=== PATIENT | male | born 1950 | race Hispanic/Latino ===

== ENCOUNTER 2017-01-02 06:00 | Day surgery (SDC) | payer OTHER ==
[2017-01-02 06:01] VITALS: BMI 27.2
--- NOTE | 2017-01-02 06:22 | ED PDOC ---
Arrival/HPI - General Chief Complaint: Back Pain Time Seen by Provider: 01/02/17 06:08 - History of Present Illness Narrative History of Present Illness (Text): 01/02/17 06:18 66 yo male, hx of AAA repair, presents with left flank pain x 1 day. pain came on w/o inciting factor. no known trauma. pt states had AAA repair in [facility] [place], with noted ct without any endovascular leak. pt denies any fevers, n/v/d, hematuria, or other complaints. Past Medical History - Provider Review Nursing Documentation Reviewed: Yes - Cardiac Hx Cardiac Disorders: Yes (POST TRIPLE A REPAIR-ENDOVASCULAR REPAIR.) Hx Circulatory Problems: Yes Hx Hypertension: Yes Hx Pacemaker: No - Pulmonary Hx Respiratory Disorders: Yes (SMOKED CIGARETTES H/O QUIT) - Neurological Hx Neurological Disorder: No Hx Paralysis: No - HEENT Hx HEENT Disorder: No - Renal Hx Renal Disorder: No - Endocrine/Metabolic Hx Endocrine Disorders: No - Hematological/Oncological Hx Blood Disorders: No Hx Blood Transfusions: No Hx Blood Transfusion Reaction: No - Integumentary Hx Dermatological Disorder: No - Musculoskeletal/Rheumatological Hx Musculoskeletal Disorders: No Hx Falls: No - Gastrointestinal Hx Gastrointestinal Disorders: Yes (DIVERTICULITIS,APPENDECTOMY) Hx Diverticulitis: Yes - Genitourinary/Gynecological Hx Genitourinary Disorders: No - Psychiatric Hx Psychophysiologic Disorder: No Hx Emotional Abuse: No Hx Physical Abuse: No Hx Substance Use: No - Surgical History Hx Appendectomy: Yes Other/Comment: COLON RESECTION WITH COLOSTOMY AND CLOSURE.,INGUINAL HERNIA REPAIR - Anesthesia Hx Anesthesia Reactions: No - Suicidal Assessment Feels Threatened In Home Enviroment: No Family/Social History - Physician Review Nursing Documentation Reviewed: Yes Family/Social History: Unknown Family HX Smoking Status: Former Smoker Hx Alcohol Use: No Hx Substance Use: No Allergies/Home Meds Allergies/Adverse Reactions: Allergies No Known Allergies Allergy (Verified 01/02/17 06:14) Home Medications: Home Meds Medication Instructions Recorded Confirmed Simvastatin 0 mg PO QPM 01/17/16 01/02/17 Metoprolol Succinate 0 mg PO DAILY 01/19/16 01/28/16 Review of Systems - Review of Systems Constitutional: Normal Eyes: Normal ENT: Normal Respiratory: Normal Cardiovascular: Normal Gastrointestinal: Normal Genitourinary Male: Normal Musculoskeletal: Back Pain Skin: Normal Neurological: Normal Endocrine: Normal Hemo/Lymphatic: Normal Psychiatric: Normal Physical Exam Vital Signs Temp Pulse Resp BP Pulse Ox 01/02/17 09:15 77 147/71 01/02/17 07:40 98.2 F 01/02/17 07:38 75 20 156/89 H 01/02/17 06:34 97.8 F 76 17 158/85 H 96 Temperature: Afebrile Blood Pressure: Normal Pulse: Regular Respiratory Rate: Normal Appearance: Positive for: Well-Appearing, Non-Toxic, Comfortable Pain Distress: None Mental Status: Positive for: Alert and Oriented X 3 - Systems Exam Head: Present: Atraumatic, Normocephalic Pupils: Present: PERRL Extroacular Muscles: Present: EOMI Conjunctiva: Present: Normal Mouth: Present: Moist Mucous Membranes Neck: Present: Normal Range of Motion Respiratory/Chest: Present: Clear to Auscultation, Good Air Exchange. No: Respiratory Distress, Accessory Muscle Use Cardiovascular: Present: Regular Rate and Rhythm, Normal S1, S2. No: Murmurs Abdomen: Present: Normal Bowel Sounds. No: Tenderness, Distention, Peritoneal Signs Back: Present: CVA Tenderness (left) Upper Extremity: Present: Normal Inspection. No: Cyanosis, Edema Lower Extremity: Present: Normal Inspection. No: Edema Neurological: Present: GCS=15, CN II-XII Intact, Speech Normal Skin: Present: Warm, Dry, Normal Color. No: Rashes Psychiatric: Present: Alert, Oriented x 3, Normal Insight, Normal Concentration Medical Decision Making ED Course and Treatment: 01/02/17 06:22 pt to have renal angiogram to be performed by dr chappell. pending callback by dr chappell 01/02/17 06:57 - Lab Interpretations Lab Results: 01/03/17 06:16 01/03/17 06:16 Lab Results 01/03/17 06:16: Sodium 138, Potassium 4.1, Chloride 106, Carbon Dioxide 24, Anion Gap 12, BUN 23 H, Creatinine 1.8 H, Est GFR ( Amer) 46, Est GFR ( Non-Af Amer) 38, Random Glucose 120 H, Calcium 8.7 01/03/17 06:16: WBC 12.0 H, RBC 3.74, Hgb 10.3 L, Hct 31.5 L, MCV 84.2, MCH 27.5 , MCHC 32.7, RDW 14.4, Plt Count 245, MPV 9.8 01/02/17 16:39: Blood Type O POSITIVE, Antibody Screen Negative, Crossmatch See Detail, BBK History Checked Patient has bt 01/02/17 16:39: WBC 12.9 H D, RBC 3.63, Hgb 10.0 L, Hct 30.5 L, MCV 84.0, MCH 27.5, MCHC 32.8, RDW 14.4, Plt Count 279, MPV 9.5, Gran % 70.9 H, Lymph % (Auto ) 20.1 L, Weber % (Auto) 8.0 H, Eos % (Auto) 0.8 L, Baso % (Auto) 0.2, Gran # 9.17 H, Lymph # 2.6, Weber # 1.0 H, Eos # 0.1, Baso # 0.03 01/02/17 07:06: Sodium 140, Potassium 4.7, Chloride 102, Carbon Dioxide 31, Anion Gap 12, BUN 34 H, Creatinine 2.4 H, Est GFR ( Amer) 33, Est GFR ( Non-Af Amer) 27, Random Glucose 98, Calcium 9.5, Total Bilirubin 0.4, AST 22, ALT 22, Alkaline Phosphatase 130 H, Total Protein 7.4, Albumin 4.2, Globulin 3.2 , Albumin/Globulin Ratio 1.3, Lipase 70 01/02/17 07:06: PT 11.1, INR 1.01, APTT 33.2 01/02/17 07:06: WBC 10.0 D, RBC 4.18, Hgb 11.7 L, Hct 35.6 L, MCV 85.2, MCH 28.0, MCHC 32.9, RDW 14.3, Plt Count 251, MPV 9.0, Gran % 71.2 H, Lymph % (Auto ) 21.4 L, Weber % (Auto) 5.4, Eos % (Auto) 1.7, Baso % (Auto) 0.3, Gran # 7.14 H , Lymph # 2.1, Weber # 0.5, Eos # 0.2, Baso # 0.03 - RAD Interpretation Radiology Orders: 01/02/17 07:25 CAR PERIPHERAL VASCULAR ORDER [VASCULAR] Stat - Medication Orders Current Medication Orders: Acetaminophen (Tylenol 325mg Tab) 650 mg PO Q4H PRN PRN Reason: Pain, Mild (1-3) Atorvastatin Calcium (Lipitor) 20 mg PO QPM [facility] Last Admin: 01/02/17 18:16 Dose: 20 mg Sodium Chloride (Sodium Chloride 0.9%) 1,000 mls @ 100 mls/hr IV .Q10H CHARISSE Sodium Chloride (Sodium Chloride 0.45%) 1,000 mls @ 100 mls/hr IV .Q10H CHARISSE Stop: 01/03/17 08:00 Last Admin: 01/03/17 01:23 Dose: 100 mls/hr eMAR Start Stop Document 01/03/17 01:23 FM (Rec: 01/03/17 01:24 [id number]) Intravenous Solution Start Date 01/03/17 Start Time 01:24 End Date 01/03/17 End time 11:24 Total Infusion Time 600 Metoprolol Succinate (Toprol Xl) 50 mg PO DAILY [facility] Ondansetron HCl (Zofran Inj) 4 mg IVP ONCE PRN PRN Reason: Nausea/Vomiting Oxycodone/Acetaminophen (Percocet 5/325 Mg Tab) 1 tab PO Q4H PRN PRN Reason: Pain, moderate (4-7) Stop: 01/05/17 10:04 Last Admin: 01/02/17 15:45 Dose: 1 tab [facility] Pain Assessment Document 01/02/17 15:45 JFR (Rec: 01/02/17 15:45 R [id number]) Pain Reassessment Is this a pain reassessment? No Presence of Pain Presence of Pain Yes Pain Scale Used Pain Scale Used Numeric Location Left, Right or Bilateral Left Pain Location Body Site Arm Description Description Dull Intensity of Pain at present 9 Re-Assess: [facility] Pain Assessment Document 01/02/17 16:45 JFR (Rec: 01/02/17 20:35 R [id number]) Pain Reassessment Is this a pain reassessment? Yes Sleep Is patient sleeping during reassessment? Yes Discontinued Medications Sodium Chloride (Sodium Chloride 0.9%) 350 mls @ 999 mls/hr IV .Q22M STA Stop: 01/02/17 07:47 Last Admin: 01/02/17 07:45 Dose: 999 mls/hr eMAR Start Stop Document 01/02/17 07:45 JARRETT (Rec: 01/02/17 07:45 JARRETT [id number]) Intravenous Solution Start Date 01/02/17 Start Time 07:30 End Date 01/02/17 End time 08:00 Total Infusion Time 30 Disposition/Present on Arrival - Present on Arrival Any Indicators Present on Arrival: No History of DVT/PE: No History of Uncontrolled Diabetes: No Urinary Catheter: No History of Decub. Ulcer: No History Surgical Site Infection Following: None - Disposition Have Diagnosis and Disposition been Completed?: Yes Diagnosis: Flank pain Disposition: HOSPITALIZED Disposition Time: 07:00 Condition: STABLE
[2017-01-02 07:13] LABS: BASO # 0.03 K/mm3 (0.0-2.0); BASO % 0.3 % (0.0-3.0); EOS # 0.2 (0.0-0.7); EOS % 1.7 % (1.5-5.0); GRAN # 7.14 (1.4-6.5); GRAN % 71.2 % (50.0-68.0); HEMATOCRIT 35.6 % (42.0-52.0); LYMPH # 2.1 (1.2-3.4); LYMPH % 21.4 % (22.0-35.0); MEAN CELL VOLUME 85.2 fl (80.0-105.0); MEAN CORPUSCULAR HGB CONC 32.9 g/dl (31.0-37.0); MONO # 0.5 (0.1-0.6); MONO % 5.4 % (1.0-6.0); RED CELL DISTRIBUTION WIDTH 14.3 % (11.5-14.5)
[2017-01-02 07:21] LABS: ALB/GLOB RATIO 1.3 (1.1-1.8); BILIRUBIN,TOTAL 0.4 mg/dL (0.2-1.3); CALCIUM 9.5 mg/dL (8.4-10.5); POTASSIUM 4.7 mmol/L (3.6-5.0); TOTAL PROTEIN 7.4 g/dL (5.8-8.3)
[2017-01-02 07:25] LABS: INR 1.01 (0.93-1.08); PARTIAL THROMBOPLASTIN TIME 33.2 Seconds (25.1-36.5)
[2017-01-02] MEDS ORDERED: Sodium Chloride 0.9% 1,000 ML IV SCH (07:30)
[2017-01-02] MEDS ORDERED: Midazolam 2 MG/2 ML VIAL ONE ×3 (07:32→08:50)
[2017-01-02] MEDS ORDERED: Lidocaine 2% Inj (20ml) ONE (07:32)
[2017-01-02] MEDS ORDERED: Nitroglycerin 50mg in D5W 0 MG/0 ML BOTTLE IV ONE (07:34)
[2017-01-02] MEDS ORDERED: Iodixanol 320 MG/ML 200 ML BOTTLE IV ONE (07:34)
[2017-01-02] MEDS ORDERED: Iodixanol 320 MG/ML 100 ML BOTTLE IV ONE (07:34)
[2017-01-02] MEDS ORDERED: Oxycodone/Acetaminophen 5/325 mg Tab PO PRN (10:03)
[2017-01-02] MEDS: Sodium Chloride 0.45% 1,000 ML IV SCH ×2 (11:35→20:15)
[2017-01-02 12:02] VITALS: RESP 20
[2017-01-02 16:55] LABS: BASO # 0.03 K/mm3 (0.0-2.0); BASO % 0.2 % (0.0-3.0); EOS # 0.1 (0.0-0.7); EOS % 0.8 % (1.5-5.0); GRAN # 9.17 (1.4-6.5); GRAN % 70.9 % (50.0-68.0); HEMATOCRIT 30.5 % (42.0-52.0); LYMPH # 2.6 (1.2-3.4); LYMPH % 20.1 % (22.0-35.0); MEAN CORPUSCULAR HEMOGLOBIN 27.5 pg (25.0-35.0); MEAN CORPUSCULAR HGB CONC 32.8 g/dl (31.0-37.0); MEAN PLATELET VOLUME 9.5 fl (7.0-11.0); RED CELL DISTRIBUTION WIDTH 14.4 % (11.5-14.5); WHITE BLOOD COUNT 12.9 10^3/ul (4.5-11.0)
--- NOTE | 2017-01-02 19:29 | VASCULAR ---
PROCEDURE: 1. Bilateral selective renal arteriograms 2. Right renal artery origin angioplasty and stent placement. HISTORY: Abdominal aortic aneurysm. Previous ovation and bifurcated stent graft placement with right renal artery stent. Thrombosed right renal artery stent with accelerated hypertension and renal insufficiency. Attempt recanalization. PHYSICIAN(S): Jah Nuno M.D. TECHNIQUE: The relative risks and indications of the procedure were explained to the patient and consent obtained. The patient was hydrated prior to the procedure and the appropriate labs drawn. The patient was placed supine on the arteriogram table and the left arm prepped and draped in the usual sterile fashion. Conscious sedation and monitoring were provided throughout the procedure by a nurse. Under ultrasound guidance, the left axillary artery was punctured with a micropuncture set. A 5 [place] sheath was placed. A 5 [place] flush catheter was advanced down the descending thoracic aorta placed at the level of the renal arteries. DSA abdominal aortogram was performed. This revealed occlusion of the right renal artery stent. Exchange is made for 6 [place], 70 cm sheath in the suprarenal aorta. With some difficulty, the thrombosed right renal artery stent was crossed. 0.014 support wire was placed in the distal right renal artery. The occluded right renal artery stent was dilated with a 6 and 7 mm balloon. Antegrade flow was re-established. Next 7 mm x 18 mm balloon expandable stent was placed the origin of the right renal artery. An excellent angiographic result was obtained. Diagnostic catheter was placed the origin of the left renal artery. A selective DSA left renal arteriogram was performed. The catheter was advanced across origin of the left renal artery. 0.014 guidewire was placed left renal artery. A pull-back pressure was obtained across the left renal artery origin. No gradient was demonstrated. The sheath was removed hemostasis obtained with a Mynx device. The patient tolerated the procedure well. FINDINGS: The ovation in stent graft is patent. No obvious endoleak is seen. Post iliac limbs are patent. The right renal artery stent is thrombosed. The left renal artery is patent without a significant gradient. IMPRESSION: 1.Successful recanalization of the thrombosed right renal artery stent. A new 7 mm x 18 mm stent was placed. 2. Patent left renal artery without a significant arterial gradient. 3. Patent Ovation bifurcated stent graft without evidence of endoleak.
--- NOTE | 2017-01-02 19:30 | CARD ---
PROCEDURE: Ultrasound guided paracentesis. HISTORY: Pancreatic carcinoma. Recurrent ascites with abdominal pain and distension. Needs paracentesis. PHYSICIAN(S): Jah Nuno MD. TECHNIQUE: The relative risks and indications for the procedure were explained to the patient and his family and informed written consent obtained. Sonography of the abdomen was performed in a supine position. This revealed a moderate to large amount of ascites, greatest in the right lower quadrant. A puncture site was selected and the area was prepped and draped in the usual sterile fashion. 1% Xylocaine was used to anesthetize the skin and soft tissues. A 7 [place]har[place] paracentesis catheter was trocared into the right lower quadrantand 8700 cc of yellow bilious fluid aspirated. No labs were sent. IMPRESSION: Ultrasound-guided paracentesis in the right lower quadrant. 8700 cc of fluid were aspirated.
[2017-01-02 23:49] VITALS: TEMP 98
[2017-01-03] MEDS: Sodium Chloride 0.45% 1,000 ML IV SCH (01:23)
[2017-01-03 06:16] VITALS: O2SAT 100
[2017-01-03 06:34] LABS: HEMATOCRIT 31.5 % (42.0-52.0); MEAN CELL VOLUME 84.2 fl (80.0-105.0); MEAN CORPUSCULAR HEMOGLOBIN 27.5 pg (25.0-35.0); MEAN CORPUSCULAR HGB CONC 32.7 g/dl (31.0-37.0); MEAN PLATELET VOLUME 9.8 fl (7.0-11.0); RED CELL DISTRIBUTION WIDTH 14.4 % (11.5-14.5)
[2017-01-03 06:49] LABS: CALCIUM 8.7 mg/dL (8.4-10.5); POTASSIUM 4.1 mmol/L (3.6-5.0)
[2017-01-03] MEDS: Metoprolol Succinate 50 mg XL Tab PO SCH ×2 (09:49→09:52)
[2017-01-03 09:53] VITALS: BP 198/96
[2017-01-03 10:41] VITALS: PULSE 86
--- NOTE | 2017-01-03 11:24 | CON ---
DATE: 01/02/2017 REASON FOR CONSULTATION: Acute kidney injury; hypertension; right renal artery stenosis, status post angiogram and declotting of stent. HISTORY OF PRESENT ILLNESS: A 66-year-old male known to me from recent outpatient evaluation. The patient was seen because of severe hypertension and acute kidney injury. The patient has a history of aortic aneurysm, aortic stent graft, right renal artery stent. Suspicion was high for occlusion of stent. The patient was referred for angiogram. The patient is now seen after angiogram. He was found to have occlusion of right renal artery stent. He is now status post declotting of the stent. He feels well. He denies any headaches, dizziness, lightheadedness. The patient denies any chest pain. The patient denies any palpitations. PHYSICAL EXAMINATION: GENERAL: Elderly male, lying in bed. VITAL SIGNS: Blood pressure 152/86, heart rate 80, respiratory rate 20, and temperature 98.3. HEENT: Normocephalic, atraumatic. NECK: Supple, no JVD. LUNGS: Bilateral equal air entry. No rales. CARDIAC: S1 and S2, regular rate and rhythm, no murmur, no rub. ABDOMEN: Soft, nondistended, nontender, bowel sounds present. EXTREMITIES: No lower extremity edema. LABORATORY DATA: WBC 12.9, hemoglobin 10, hematocrit 30.5, and platelets 279. Sodium 140, potassium 4.7, chloride 102, CO2 of 31, BUN 34, creatinine 2.4, glucose 98, calcium 9.5, AST is 22, ALT is 22, albumin is 4.2. CURRENT MEDICATIONS: Lipitor 20, normal saline at 100, Toprol-XL 50, Tylenol, Zofran. ASSESSMENT: 1. Acute kidney injury, likely secondary to right renal artery stent occlusion. 2. Accelerated hypertension. 3. Now status post declotting of right renal artery stent. 4. Hypertension. 5. Anemia. PLAN: 1. Monitor blood pressure closely. 2. Monitor urine output. 3. Monitor K, creatinine. 4. Continue antihypertensives. 5. Aggressive lipid-lowering therapy. Thank you for the courtesy of this consultation. We will follow this patient with you. Margaret Garcia MD
== END 2017-01-03 12:31 | disposition home or self-care (01) ==
LOC: ED 06:00 → SDSVAS 08:20 → 2RSO 11:18 → SDSVAS 01-03 12:31
PROVIDERS: ATTEND Radiology Vascular & Interventional Radiology
DX: T82.898A Other specified complication of vascular prosthetic devices, implants and grafts, initial encounter (principal); N17.9 Acute kidney failure, unspecified; I10 Essential (primary) hypertension; D64.9 Anemia, unspecified; R18.8 Other ascites; Z86.79 Personal history of other diseases of the circulatory system; Y83.8 Other surgical procedures as the cause of abnormal reaction of the patient, or of later complication, without mention of misadventure at the time of the procedure; Z87.891 Personal history of nicotine dependence
CPT/HCPCS: 36251; 36415; 37236; 80048; 80053; 83690; 85025; 85027; 85610; 85730; 86850; 86900; 86920; 93005; 99152; 99153; 99285; C1725 ×2; C1760; C1769 ×3; C1876; C1887 ×3; C1892; C1894 ×2; J0690; J1644 ×2; J2250; J2405 ×2; J3010; J7030 ×3; J7040; Q9967